=== PATIENT | female | born 2000 | race American Indian/Alaskan Native ===

== ENCOUNTER 2021-10-11 16:57 | Inpatient (IN) | payer MEDICAID ==
[2021-10-11] MEDS ORDERED: Penicillin G Potassium 5 MILLUNITS in Sodium Chloride 0.9% 100 ML IV ONE (17:02)
[2021-10-11] MEDS ORDERED: Lactated Ringers 1,000 ML IV ONE (17:28)
[2021-10-11] MEDS ORDERED: Sodium Chloride 0.9% 10 ML Syringe FLUSH PRN (17:28)
[2021-10-11] MEDS ORDERED: Tranexamic Acid 1,000 MG in Sodium Chloride 0.9% 100 ML IV PRN (17:28)
[2021-10-11] MEDS ORDERED: Nalbuphine 20 MG/1 ML Amp IM PRN (17:28)
[2021-10-11] MEDS ORDERED: Lidocaine 1% 30 ML SDV INJECT PRN (17:28)
[2021-10-11] MEDS ORDERED: Misoprostol 400 MCG (4 X 100 MCG TAB) RECTAL PRN (17:28)
[2021-10-11] MEDS ORDERED: Carboprost Tromethamine 250 MCG/1 ML Amp IM PRN (17:28)
[2021-10-11] MEDS ORDERED: Methylergonovine 0.2 MG/1 ML Amp IM PRN (17:28)
[2021-10-11] MEDS ORDERED: Acetaminophen 325 MG Tab PO PRN ×2 (17:28)
[2021-10-11] MEDS ORDERED: Ondansetron 4 MG/2 ML SDV IVPUSH PRN (17:28)
[2021-10-11] MEDS ORDERED: Oxytocin/Normal Saline 30 UNIT/500 ML BAG IV SCH ×2 (17:30)
[2021-10-11] MEDS ORDERED: Penicillin G Potassium 3 MILLUNITS in Sodium Chloride 0.9% 100 ML IV SCH (17:30)
[2021-10-11] MEDS: Lactated Ringers 1,000 ML IV SCH ×2 (17:55→23:34)
[2021-10-11 21:01] LABS: AMPHETAMINES,URINE NEGATIVE (NEGATIVE); BARBITURATES,URINE NEGATIVE (NEGATIVE); BENZODIAZEPINE,URINE NEGATIVE (NEGATIVE); MDMA (ECSTASY), URINE POSITIVE (NEGATIVE); METHADONE,URINE NEGATIVE (NEGATIVE); METHAMPHETAMINES,URINE NEGATIVE (NEGATIVE); OPIATES,URINE NEGATIVE (NEGATIVE); OXYCODONE,URINE NEGATIVE (NEGATIVE); PHENCYCLIDINE,URINE NEGATIVE (NEGATIVE); TCA,URINE NEGATIVE (NEGATIVE)
[2021-10-11] MEDS: Penicillin G Potassium 3 MILLUNITS in Sodium Chloride 0.9% 100 ML IV SCH (21:23)
[2021-10-11] MEDS: Sodium Chloride 0.9% 10 ML Syringe FLUSH SCH (21:24)
[2021-10-12] MEDS: Lactated Ringers 1,000 ML IV SCH ×2 (01:30→05:27)
[2021-10-12] MEDS: Penicillin G Potassium 3 MILLUNITS in Sodium Chloride 0.9% 100 ML IV SCH ×2 (01:31→05:27)
[2021-10-12] MEDS ORDERED: Morphine PF 1 MG/ML Amp ITHECAL ONE (04:44)
[2021-10-12] MEDS ORDERED: Zolpidem 5 MG Tab PO PRN (06:05)
[2021-10-12] MEDS ORDERED: Oxytocin 10 Units/1 ML SDV IM PRN (06:05)
[2021-10-12] MEDS ORDERED: Simethicone 80 MG Tab.Chew PO PRN (06:05)
[2021-10-12] MEDS ORDERED: Sodium Chloride 0.9% 10 ML Syringe FLUSH PRN (06:05)
[2021-10-12] MEDS ORDERED: Docusate Sodium 100 MG Cap PO PRN (06:05)
[2021-10-12] MEDS ORDERED: Benzocaine/Menthol 20%-0.5% Spray 78 GM Cannister TOP PRN (06:05)
[2021-10-12] MEDS ORDERED: Ibuprofen 800 MG Tab PO PRN (06:05)
[2021-10-12] MEDS: Prenatal Multivitamin with Calcium/Folic Acid/Iron Tab PO SCH (09:17)
[2021-10-12] MEDS: Sodium Chloride 0.9% 10 ML Syringe FLUSH SCH (09:18)
[2021-10-12] MEDS ORDERED: Promethazine 25 MG/ML SDV ONE (09:57)
[2021-10-12] MEDS ORDERED: Promethazine 25 MG/ML SDV IM ONE (10:30)
[2021-10-13] MEDS: Prenatal Multivitamin with Calcium/Folic Acid/Iron Tab PO SCH (10:24)
[2021-10-14] MEDS ORDERED: Ferrous Sulfate 325 MG Tab PO SCH (08:00)
[2021-10-14] MEDS: Prenatal Multivitamin with Calcium/Folic Acid/Iron Tab PO SCH (08:55)
== END 2021-10-14 13:30 | disposition home or self-care (01) | DRG 806 ==
LOC: DL.OBCHECK 16:57 → DL.OB 18:08 → OBSVTOIN 10-12 05:47
PROVIDERS: ADMIT Family Medicine; ATTEND Family Medicine
PROC: 10E0XZZ Delivery of Products of Conception, External Approach (ICD-10-PCS; principal; 2021-10-12)
PROC: 3E0R3BZ Introduction of Anesthetic Agent into Spinal Canal, Percutaneous Approach (ICD-10-PCS; 2021-10-12)
DX: O42.913 Preterm premature rupture of membranes, unspecified as to length of time between rupture and onset of labor, third trimester (principal); O99.324 Drug use complicating childbirth; Z37.0 Single live birth; Z3A.36 36 weeks gestation of pregnancy; O69.81X0 Labor and delivery complicated by cord around neck, without compression, not applicable or unspecified; D64.9 Anemia, unspecified; O99.02 Anemia complicating childbirth; F15.90 Other stimulant use, unspecified, uncomplicated; Z87.891 Personal history of nicotine dependence; Z20.822 Contact with and (suspected) exposure to COVID-19
CPT/HCPCS: 36415; 59025; 59409; 62320; 76819; 80305-QW; 85027; 86592; A9270-GY; J2274; J2300; J2405; J2540; J2550; J2590; J3490; J7120; U0002

== ENCOUNTER 2023-03-16 07:17 | Emergency (ER) | payer MEDICAID ==
[2023-03-16] MEDS ORDERED: Sodium Chloride 0.9% 1,000 ML IV ONE (07:26)
[2023-03-16] MEDS ORDERED: Ondansetron 4 MG/2 ML SDV IV ONE (07:26)
[2023-03-16] MEDS ORDERED: Famotidine 20 MG/2 ML SDV IVPUSH ONE (07:27)
[2023-03-16] MEDS ORDERED: Ketorolac 30 MG/ML SDV IVPUSH ONE (07:27)
[2023-03-16 07:56] LABS: BASOPHILS PERCENT AUTO 0.3 % (0.0-1.0); EOSINOPHILS PERCENT AUTO 4.6 % (1.0-3.0); HEMATOCRIT 37.2 % (37.0-47.0); HEMOGLOBIN 13.2 g/dL (12.0-16.0); LYMPHOCYTES PERCENT AUTO 34.3 % (20.5-50.1); MEAN CORPUSCULAR HEMOGLOBIN 30.3 pg (27.0-34.0); MEAN CORPUSCULAR HGB CONC 35.5 g/dL (33.0-35.0); MEAN CORPUSCULAR VOLUME 85.3 fL (80-100); MONOCYTES PERCENT AUTO 11.1 % (2-8); NEUTROPHILS PERCENT AUTO 49.7 % (42.2-75.2); PLATELET COUNT,PLT 284 10^3/uL (150-450); RED BLOOD CELL COUNT 4.36 10^6/uL (4.2-5.4); WHITE BLOOD CELL COUNT,WBC 7.2 10^3/uL (5.0-10.0)
[2023-03-16 07:58] LABS: APPEARANCE,URINE CLEAR (CLEAR); BILIRUBIN,URINE NEGATIVE (NEGATIVE); COLOR,URINE YELLOW (YELLOW); GLUCOSE,URINE NEGATIVE (NEGATIVE); KETONES,URINE NEGATIVE (NEGATIVE); LEUKOCYTE ESTERASE,URINE NEGATIVE (NEGATIVE); NITRITE,URINE NEGATIVE (NEGATIVE); OCCULT BLOOD,URINE NEGATIVE (NEGATIVE); PROTEIN,URINE NEGATIVE (NEGATIVE)
[2023-03-16 08:14] LABS: A/G RATIO 0.8; ALBUMIN 3.4 g/dL (3.4-5.0); ANION GAP 10.6 mEq/L (7-13); BILIRUBIN TOTAL 0.6 mg/dL (0.2-1.0); BUN/CREATININE RATIO 22.7 (No establ ref range); CALCIUM 8.5 mg/dL (8.5-10.1); CREATININE 0.97 mg/dL (0.55-1.02); EST CRCL DRUG DOSING (CG) 79.22 mL/min; POTASSIUM,K 3.6 mmol/L (3.5-5.1); PROTEIN TOTAL,TP 7.6 g/dL (6.4-8.2)
[2023-03-16] MEDS ORDERED: Iopamidol 612 MG/ML 100 ML Bottle IVPUSH ONE (08:16)
[2023-03-16 08:17] LABS: LACTIC ACID 0.6 mmol/L (0.4-2.0)
== END 2023-03-16 10:03 ==
LOC: DL.ED 07:17
DX: K80.63 Calculus of gallbladder and bile duct with acute cholecystitis with obstruction (principal)
CPT/HCPCS: 36415; 74177; 80053; 81003; 81025; 83605; 83690; 85025; 96361; 96374; 96375; 99285; 99285-25; J1885; J2405; J3490; J7030; Q9967

== ENCOUNTER 2024-07-16 08:46 | Inpatient (IN) | payer MEDICAID ==
[2024-07-16] MEDS: Lactated Ringers 1,000 ML IV ONE (09:00)
[2024-07-16] MEDS: Penicillin G Potassium 5 MILLUNITS in Sodium Chloride 0.9% 100 ML IV ONE (10:15)
[2024-07-16] MEDS ORDERED: Acetaminophen 325 MG Tab PO PRN ×2 (10:19→18:19)
[2024-07-16] MEDS ORDERED: Methylergonovine 0.2 MG/1 ML Amp IM PRN (10:19)
[2024-07-16] MEDS ORDERED: Sodium Chloride 0.9% 10 ML Syringe FLUSH PRN ×2 (10:19→18:19)
[2024-07-16] MEDS ORDERED: Tranexamic Acid 1,000 MG in Sodium Chloride 0.9% 100 ML IV PRN ×2 (10:19→18:19)
[2024-07-16] MEDS ORDERED: Ondansetron 4 MG/2 ML SDV IVPUSH PRN (10:19)
[2024-07-16] MEDS ORDERED: Carboprost Tromethamine 250 MCG/1 ML Amp IM PRN ×2 (10:19→18:19)
[2024-07-16] MEDS ORDERED: Calcium Carbonate 500 MG Tab.Chew PO PRN (10:19)
[2024-07-16] MEDS ORDERED: Misoprostol 50 MCG (1/2 of 100 MCG) Tab PO SCH (10:30)
[2024-07-16] MEDS ORDERED: Oxytocin/Lactated Ringers 30 UNIT/500 ML BAG IV SCH (10:30)
[2024-07-16 10:40] LABS: HEMATOCRIT 36.6 % (37.0-47.0); HEMOGLOBIN 11.7 g/dL (12.0-16.0); MEAN CORPUSCULAR HEMOGLOBIN 26.6 pg (27.0-34.0); MEAN CORPUSCULAR VOLUME 83.2 fL (80-100); RED BLOOD CELL COUNT 4.4 10^6/uL (4.2-5.4); WHITE BLOOD CELL COUNT,WBC 5.8 10^3/uL (5.0-10.0)
[2024-07-16] MEDS: fentaNYL 100 MCG/2 ML SDV IVPUSH PRN (10:45)
[2024-07-16 11:01] LABS: A/G RATIO 0.47; ALANINE AMINOTRANSFERASE,ALT 9 U/L (14-59); ALBUMIN 2.3 g/dL (3.4-5.0); ALKALINE PHOSPHATASE 154 U/L (46-116); ASPARTATE AMNIOTRANSFERASE,AST 15 U/L (15-37); BILIRUBIN TOTAL 0.3 mg/dL (0.2-1.0); BLOOD UREA NITROGEN,BUN 6 mg/dL (7-18); BUN/CREATININE RATIO 7.8 (No establ ref range); CALCIUM 8.4 mg/dL (8.5-10.1); CARBON DIOXIDE,CO2 25 mmol/L (21-32); CHLORIDE,CL 106 mmol/L (98-107); CREATININE 0.77 mg/dL (0.55-1.02); ESTIMATED GFR 111 mL/min (>=60); GLUCOSE RANDOM 69 mg/dL (70-99); PROTEIN TOTAL,TP 7.2 g/dL (6.4-8.2); SODIUM,NA 141 mmol/L (136-145)
[2024-07-16] MEDS: Lactated Ringers 1,000 ML IV SCH (11:15)
[2024-07-16] MEDS: Oxytocin/Normal Saline 30 UNIT/500 ML BAG IV SCH (12:15)
[2024-07-16] MEDS ORDERED: Phenylephrine HCl In 0.9% NaCl 1 MG/10 ML Syringe IVPUSH PRN (12:23)
[2024-07-16] MEDS ORDERED: ePHEDrine 50 MG/ML SDV IVPUSH PRN (12:23)
[2024-07-16] MEDS ORDERED: Ropivacaine 200 MG in Premix Bag 1 BAG EPIDUR SCH (12:30)
[2024-07-16] MEDS ORDERED: Ondansetron 4 MG/2 ML SDV IV ONE (12:59)
[2024-07-16] MEDS ORDERED: Phenylephrine 1% 10 MG/ML SDV IV ONE (12:59)
[2024-07-16] MEDS ORDERED: Oxytocin/Normal Saline 30 UNIT/500 ML BAG IV ONE (12:59)
[2024-07-16] MEDS ORDERED: Ropivacaine 100 ML EPIDUR ONE (12:59)
[2024-07-16] MEDS ORDERED: fentaNYL 100 MCG/2 ML SDV EPIDUR ONE (12:59)
[2024-07-16] MEDS ORDERED: Lactated Ringers 1,000 ML IV ONE (12:59)
[2024-07-16] MEDS: Penicillin G Potassium 3 MILLUNITS in Sodium Chloride 0.9% 100 ML IV SCH (18:18)
[2024-07-16] MEDS: Lidocaine 1% 30 ML SDV INJECT ONE (18:18)
[2024-07-16] MEDS ORDERED: Benzocaine/Menthol 20%-0.5% Spray 78 GM Cannister TOP PRN (18:19)
[2024-07-16] MEDS ORDERED: Misoprostol 100 MCG Tab RECTAL PRN (18:19)
[2024-07-16] MEDS ORDERED: Oxytocin 10 Units/1 ML SDV IM PRN (18:19)
[2024-07-16] MEDS: Sodium Chloride 0.9% 100 ML ONE (18:19)
[2024-07-16] MEDS ORDERED: Simethicone 80 MG Tab.Chew PO PRN (18:19)
[2024-07-16] MEDS ORDERED: Witch Hazel Medicated Pads 100/Jar TOP PRN (18:19)
[2024-07-16] MEDS: Docusate Sodium 100 MG Cap PO PRN (19:30)
[2024-07-16] MEDS: Ibuprofen 800 MG Tab PO SCH (19:30)
[2024-07-17] MEDS: Prenatal Multivitamin with Calcium/Folic Acid/Iron Tab PO SCH (09:48)
[2024-07-18] MEDS: Measles, Mumps & Rubella Vaccine 0.5 ML SDV SUBCUT ONE (12:19)
== END 2024-07-18 13:00 | disposition home or self-care (01) | DRG 805 ==
LOC: DL.OBCHECK 08:46 → DL.OB 10:20 → OBSVTOIN 12:13
PROVIDERS: ADMIT Student in an Organized Health Care Education/Training Program; ATTEND Student in an Organized Health Care Education/Training Program
PROC: 4A1HXCZ Monitoring of Products of Conception, Cardiac Rate, External Approach (ICD-10-PCS; principal; 2024-07-16)
PROC: 10E0XZZ Delivery of Products of Conception, External Approach (ICD-10-PCS; principal; 2024-07-16)
PROC: 3E0234Z Introduction of Serum, Toxoid and Vaccine into Muscle, Percutaneous Approach (ICD-10-PCS; 2024-07-16)
PROC: 3E0R3BZ Introduction of Anesthetic Agent into Spinal Canal, Percutaneous Approach (ICD-10-PCS; 2024-07-16)
PROC: 10907ZC Drainage of Amniotic Fluid, Therapeutic from Products of Conception, Via Natural or Artificial Opening (ICD-10-PCS; 2024-07-16)
DX: O76 Abnormality in fetal heart rate and rhythm complicating labor and delivery (principal); O45.93 Premature separation of placenta, unspecified, third trimester; Z37.0 Single live birth; O99.52 Diseases of the respiratory system complicating childbirth; J10.1 Influenza due to other identified influenza virus with other respiratory manifestations; Z3A.39 39 weeks gestation of pregnancy; Z23 Encounter for immunization; Z67.40 Type O blood, Rh positive; Z86.16 Personal history of COVID-19; Z79.899 Other long term (current) drug therapy; O77.0 Labor and delivery complicated by meconium in amniotic fluid; O99.824 Streptococcus B carrier state complicating childbirth; Z87.440 Personal history of urinary (tract) infections
CPT/HCPCS: 36415; 59409; 80053; 85027; 90471; 90707; A9270-GY; J2371; J2405; J2540; J2590; J2795; J3010; J7120